=== PATIENT | male | born 1945 | race Caucasian/White ===

== ENCOUNTER 2020-04-27 11:05 | Emergency (ER) | payer MEDICARE ==
[~2020-04-27] VITALS: Ht 177.8 cm; Wt 90.0 kg
[2020-04-27 13:47] VITALS: BP 152/87
== END 2020-04-27 13:44 | disposition home or self-care (01) ==
LOC: ER 11:07
DX: G44.221 Chronic tension-type headache, intractable (principal); M54.2 Cervicalgia; Z88.6 Allergy status to analgesic agent
CPT/HCPCS: 70450; 72040; 99284